=== PATIENT | female | born 1970 | race Caucasian/White ===

== ENCOUNTER → 2020-09-20 | Outpatient (CLI) | payer OTHER ==
--- NOTE | 2020-09-24 11:56 | MM ---
Reason for exam: screening (asymptomatic). Last mammogram was performed 4 years and 10 months ago. History: Excisional biopsy of the left breast, March 13, 2008. Benign left mammotome panel of the left breast, March 01, 2008. Excisional biopsy of the right breast. Took hormonal contraceptives for 10 years. Physical Findings: A clinical breast exam by your physician is recommended on an annual basis and results should be correlated with mammographic findings. MG Screening Mammo w CAD Bilateral CC and MLO view(s) were taken. Prior study comparison: November 23, 2015, left breast MG 3d work up w/cad LT. November 15, 2015, bilateral MG screening mammo w CAD. The breast tissue is extremely dense which could obscure a lesion on mammography. Finding #1: There is a 11 mm obscured oval density in the upper outer quadrant, middle position of the right breast. Finding #2: There are typically benign round, diffuse/scattered calcifications in both breasts. Finding #3: There are indistinct indeterminate grouped/clustered calcifications in the left breast. Distortion left breast centrally and stable consistent with excision from 2007. ASSESSMENT: Incomplete: need additional imaging evaluation, BI-RAD 0 RECOMMENDATION: Special view mammogram and ultrasound of the right breast. [facility] will attempt to contact patient to return for supplemental views and ultrasound.
== END | disposition home or self-care (01) ==
LOC: RADMAMWWP 13:50
PROVIDERS: ATTEND Obstetrics & Gynecology
DX: Z12.31 Encounter for screening mammogram for malignant neoplasm of breast (principal)
CPT/HCPCS: 77067

== ENCOUNTER → 2020-10-03 | Outpatient (CLI) | payer OTHER ==
--- NOTE | 2020-10-04 09:13 | MM ---
Reason for exam: additional evaluation requested from abnormal screening. Last mammogram was performed less than 1 month ago. History: Excisional biopsy of the left breast, March 13, 2008. Benign left mammotome panel of the left breast, March 01, 2008. Excisional biopsy of the right breast. Took hormonal contraceptives for 10 years. Physical Findings: Nurse did not find any significant physical abnormalities on exam. MG Work Up Mamm w CAD BILAT Bilateral LM view(s) were taken. Spot compression CC and spot compression MLO view(s) were taken of the right breast. CC with magnification and MLO with magnification view(s) were taken of the left breast. Prior study comparison: September 20, 2020, bilateral MG screening mammo w CAD. November 23, 2015, left breast MG 3d work up w/cad LT. November 15, 2015, bilateral MG screening mammo w CAD. The breast tissue is extremely dense which could obscure a lesion on mammography. Finding: There are typically benign fine, regional, diffuse/scattered calcifications in the upper outer quadrant, middle position of the left breast. There is a group of fine calcifications in the left breast upper outer quadrant posterior position may be coalescing. There is no discrete abnormality including area of concern right breast density. New finding since September 20, 2020, November 23, 2015, and November 15, 2015. These results were verbally communicated with the patient and result sheet given to the patient on 10/03/20. ASSESSMENT: Probably benign, BI-RAD 3 RECOMMENDATION: Follow-up diagnostic mammogram of the left breast in 3 months.
--- NOTE | 2020-10-04 09:18 | USB ---
Reason for exam: additional evaluation requested from abnormal screening. History: Excisional biopsy of the left breast, March 13, 2008. Benign left mammotome panel of the left breast, March 01, 2008. Excisional biopsy of the right breast. Took hormonal contraceptives for 10 years. US Breast Workup Limited RT Technologist: Na Coles Right limited breast ultrasound including focal area of concern, retroareolar and axilla demonstrates a 0.4 x 0.4 x 0.3cm cystic lesion at 11 o'clock and a 0.5 x 0.5 x 0.3cm cystic lesion at 12 o'clock. Scanned 9-12 o'clock. These results were verbally communicated with the patient and result sheet given to the patient on 10/03/20. ASSESSMENT: Benign, BI-RAD 2 RECOMMENDATION: Follow-up diagnostic mammogram in 3 months. (left breast)
== END | disposition home or self-care (01) ==
LOC: RADMAMWWP 15:07
PROVIDERS: ATTEND Obstetrics & Gynecology
DX: R92.8 Other abnormal and inconclusive findings on diagnostic imaging of breast (principal)
CPT/HCPCS: 77066

== ENCOUNTER → 2021-03-15 | Outpatient (CLI) | payer OTHER ==
--- NOTE | 2021-03-19 08:35 | MM ---
Reason for exam: follow-up at short interval from prior study. Last mammogram was performed 5 months ago. History: Excisional biopsy of the left breast, March 13, 2008. Benign left mammotome panel of the left breast, March 01, 2008. Excisional biopsy of the right breast. Took hormonal contraceptives for 10 years. Physical Findings: Nurse did not find any significant physical abnormalities on exam. MG Diagnostic Mammo LT w CAD CC, MLO, LM, CC with magnification, and LM with magnification view(s) were taken of the left breast. Prior study comparison: October 03, 2020, bilateral MG work up mamm w CAD BILAT. September 20, 2020, bilateral MG screening mammo w CAD. Increasing indeterminate calcifications upper outer left breast zone B/C. This finding is changed when compared with previous exams. These results were verbally communicated with the patient and result sheet given to the patient on 03/15/21. ASSESSMENT: Suspicious, BI-RAD 4 RECOMMENDATION: Stereotactic core biopsy of the left breast. Called Dr. Whittaker's office with mammographic findings and has scheduled an appointment for the patient for 04/01/21 at 1:[address] Andrew. PRELIMINARY REPORT CALLED AND FAXED TO DR. ANDREW ON 03/19/21.
== END | disposition home or self-care (01) ==
LOC: RADMAMWWP 14:24
PROVIDERS: ATTEND Obstetrics & Gynecology
DX: R92.1 Mammographic calcification found on diagnostic imaging of breast (principal); Z79.3 Long term (current) use of hormonal contraceptives
CPT/HCPCS: 77065

== ENCOUNTER → 2021-04-08 | Day surgery (SDC) | payer OTHER ==
[2021-04-08 07:31] VITALS: RESP 16; TEMP 98.2
[2021-04-08 09:12] VITALS: BP 138/80; PULSE 59
--- NOTE | 2021-04-08 19:27 | MM ---
EXAMINATION TYPE: MG stereo VAD BX LT DATE OF EXAM: 04/08/2021 COMPARISON: 03/15/2021 and 10/03/2020 CLINICAL HISTORY: 50-year-old female abnormal mammogram, referred for stereotactic core needle biopsy of increasing left breast microcalcifications TECHNIQUE: Stereotactic guided core biopsy of the left breast. FINDINGS: The procedure of stereotactic guided core biopsy was explained to the patient. Benefits, a lternatives, and risks were discussed. An informed consent was then obtained. The [facility] pathway for biopsy was chosen. Shortness pathway was a lateral approach. I performed t he localization, then followed by the remainder of the procedure. A vacuum assisted biopsy gun was us ed to obtain multiple core samples. The patient tolerated the procedure well without any immediate complication. The patient was kept in the radiology department for short stay after the procedure and then discharged home in stable condi tion. A second set of sampling was performed after retargeting in an attempt to obtain additional ca lcifications. Targeted calcifications are identified in specimen mammogram. Many of the calcification s are faint. Post biopsy mammogram shows, especially the CC view, shows successful sampling of target ed calcifications by 2 cm of lateral clip migration. IMPRESSION: 1. Successful sampling of lateral left breast microcalcifications. Many of the calcifications in the specimen are faint but the postbiopsy CC view shows successful sampling. Note 2 cm of lateral clip mi gration. If benign results, six-month follow-up will be recommended. 2. FULL PATHOLOGY RESULTS TO FOLLOW.
== END ==
LOC: RADMAMWWP 07:07
PROVIDERS: ATTEND Surgery
DX: N60.12 Diffuse cystic mastopathy of left breast (principal); N60.32 Fibrosclerosis of left breast; N62 Hypertrophy of breast; R92.0 Mammographic microcalcification found on diagnostic imaging of breast; R92.8 Other abnormal and inconclusive findings on diagnostic imaging of breast
CPT/HCPCS: 88305; 19081; A4648; J2001

== ENCOUNTER → 2021-10-29 | Outpatient (CLI) | payer OTHER ==
--- NOTE | 2021-10-30 08:56 | MM ---
Reason for exam: follow-up at short interval from prior study. Last mammogram was performed 8 months ago. History: Benign MG stereo VAD BX LT of the left breast, April 08, 2021. Excisional biopsy of the left breast, March 13, 2008. Benign left mammotome panel of the left breast, March 01, 2008. Excisional biopsy of the right breast. Took hormonal contraceptives for 10 years. Physical Findings: A clinical breast exam by your physician is recommended on an annual basis and results should be correlated with mammographic findings. MG Diagnostic Mammo w CAD JEFF Bilateral CC and MLO view(s) were taken. Prior study comparison: March 15, 2021, left breast MG diagnostic mammo LT w CAD. October 03, 2020, bilateral MG work up mamm w CAD BILAT. The breast tissue is extremely dense which could obscure a lesion on mammography. Finding: There are typically benign round, regional and diffuse/scattered calcifications in both breasts. Previous mammotome biopsy in the left breast. There is no discrete abnormality. Results were given to the patient verbally at the time of the exam. ASSESSMENT: Benign, BI-RAD 2 RECOMMENDATION: Routine screening mammogram of both breasts in 1 year.
== END | disposition home or self-care (01) ==
LOC: RADMAMWWP 14:29
PROVIDERS: ATTEND Obstetrics & Gynecology
DX: R92.1 Mammographic calcification found on diagnostic imaging of breast (principal)
CPT/HCPCS: 77066

== ENCOUNTER → 2022-10-30 | Outpatient (CLI) | payer OTHER ==
--- NOTE | 2022-10-31 14:50 | MM ---
Reason for Exam: Screening (asymptomatic). Last screening mammogram was performed 12 month(s) ago. Patient History: Menarche at age 13. First Full-Term at age 17. Hysterectomy at age 29. Perimenopausal. Patient used Hormonal Contraceptives for 10 years. 2021, Bilateral Reduction. 03/13/2008, Excisional Biopsy on the Left side. Excisional Biopsy on the Right side. 04/08/2021, Benign Core Biopsy on the left side. 03/01/2008, Benign Core Biopsy on the left side. Risk Values: Jeanette 5 year model risk: 1.1%. NCI Lifetime model risk: 8.4%. Prior Study Comparison: 10/03/2020 Bilateral Diagnostic Mammogram, [facility]. 03/15/2021 Left Diagnostic Mammogram, [facility]. 10/29/2021 Bilateral Diagnostic Mammogram, [facility]. Tissue Density: The breast tissue is heterogeneously dense. This may lower the sensitivity of mammography. Findings: Analyzed By CAD. Bilateral post excisional changes. Bilateral reduction mammoplasty changes. Microclip left breast from prior biopsy. Regional punctate microcalcifications on the left are unchanged. Some generalized increasing density throughout the right breast. Given this appearance, further ultrasound evaluation is recommended. Overall Assessment: Incomplete: need additional imaging evaluation, BI-RAD 0 Management: Diagnostic Breast Ultrasound of the right breast. Entire breast for generalized increasing density throughout. [facility] will attempt to contact patient to return for supplemental views and ultrasound if indicated. Electronically signed and approved by: Shaylee Torres M.D. Radiologist
== END | disposition home or self-care (01) ==
LOC: RADMAMWWP 13:15
PROVIDERS: ATTEND Obstetrics & Gynecology
DX: Z12.31 Encounter for screening mammogram for malignant neoplasm of breast (principal)
CPT/HCPCS: 77063; 77067